=== PATIENT | male | born 1980 | race Caucasian/White ===

== ENCOUNTER 2017-01-02 09:54 | Emergency (ER) | payer OTHER, BC ==
[~2017-01-02] VITALS: Ht 195.6 cm; Wt 113.4 kg
[2017-01-02] MEDS ORDERED: Flexeril PO (11:39)
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
[2017-01-02 12:35] VITALS: BP 147/92
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
== END 2017-01-02 12:35 | disposition home or self-care (01) ==
LOC: EDUNIT# 09:54 → ER 09:58
DX: S39.012A Strain of muscle, fascia and tendon of lower back, initial encounter (principal); S86.911A Strain of unspecified muscle(s) and tendon(s) at lower leg level, right leg, initial encounter; V43.52XA Car driver injured in collision with other type car in traffic accident, initial encounter; Y92.414 Local residential or business street as the place of occurrence of the external cause; Y99.8 Other external cause status
CPT/HCPCS: 70450; 72100; 72125; 73562; 99282